=== PATIENT | male | born 1965 | race Caucasian/White ===

== ENCOUNTER 2019-02-16 10:13 | Emergency (ER) | payer OTHER ==
[2019-02-16 10:23] VITALS: BP 150/92; PULSE 69; BMI 27.1
[2019-02-16] MEDS ORDERED: DIPHTH,PERTUSS(ACELL),TET 0.5 ML DISP.SYRIN IM ONE ×2 (11:20→11:26)
--- NOTE | 2019-02-16 11:22 | PDOC ---
History of Present Illness - General Chief Complaint: Laceration Stated Complaint: LIP INJURY Time Seen by Provider: 02/16/19 11:03 History Source: Patient Exam Limitations: Clinical Condition - History of Present Illness Initial Comments: 02/16/19 11:44 Patient with no significant past medical history presented with complaint of laceration to outer and inner aspect of upper lip status post hitting a metal marcus with a metal, and the metal bounced back hitting him in the lip causing laceration. Patient does not recall last tetanus vaccine. Denies headache, dental pain, loose tooth. Denies any other symptoms Timing/Duration: reports: just prior to arrival Past History - Past Medical History Allergies/Adverse Reactions: Allergies Allergy/AdvReac Type Severity Reaction Status Date / Time No Known Allergies Allergy Verified 02/16/19 10:20 Home Medications: Ambulatory Orders Amox-Tr/K Cl [Augmentin - 875Mg Tablet] 1 tab PO BID #14 tablet 02/16/19 Lisinopril [Prinivil] mg PO DAILY 02/16/19 COPD: No HTN: Yes - Surgical History Cholecystectomy: Yes (@ 1997 ?) - Psycho Social/Smoking Cessation Hx Smoking History: Never smoked Review of Systems - Review of Systems Able to Perform ROS?: Yes Is the patient limited Kosovan proficient: No Constitutional: No: Malaise, Weakness HEENTM: Yes: Symptoms Reported, See HPI, Other (lip laceration). No: Eye Pain, Blurred Vision, Tearing, Recent change in vision, Double Vision, Cataracts, Ear Pain, Ocular Prothesis, Ear Discharge, Nose Pain, Nose Congestion, Tinnitus, Nose Bleeding, Hearing Loss, Throat Pain, Throat Swelling, Mouth Pain, Dental Problems, Difficulty Swallowing, Mouth Swelling Respiratory: No: Symptoms reported Cardiac (ROS): No: Symptoms Reported ABD/GI: No: Symptoms Reported, Nausea, Vomiting Musculoskeletal: No: Symptoms Reported Integumentary: Yes: Symptoms Reported, See HPI, Other (lip laceration) Neurological: No: Headache, Unsteady Gait, Dizziness All Other Systems: Reviewed and Negative *Physical Exam - Vital Signs Last Vital Signs Temp Pulse Resp BP Pulse Ox 69 18 150/92 99 02/16/19 10:21 02/16/19 10:21 02/16/19 10:21 02/16/19 10:21 - Physical Exam Comments: 02/16/19 11:54 GENERAL: Well developed, well nourished. Awake and alert. No acute distress. HEENT: 3 cm deep vertical laceration to medial aspect of inner upper lip. Another 1 cm horizontal laceration to the outer aspect of upper lip with no active bleeding. No frenulum or vermilion involvement. Normocephalic, atraumatic. PERRLA, EOMI. No conjunctival pallor. Sclera are non-icteric. Moist mucous membranes. Oropharynx is clear. NECK: Supple. Full ROM. PULMONARY: No evidence of respiratory distress. MUSCULOSKELETAL Normal range of motion at all joints. SKIN: Warm and dry. Normal capillary refill. 3 cm deep vertical laceration to medial aspect of inner upper lip. Another 1 cm horizontal laceration to the outer aspect of upper lip with no active bleeding. No frenulum or vermilion involvement. NEUROLOGICAL: Alert, awake, appropriate. Gait is normal without ataxia. PSYCHIATRIC: Cooperative. Good eye contact. Appropriate mood General Appearance: Yes: Nourished, Appropriately Dressed. No: Apparent Distress Procedures - Laceration/Wound Repair Upper Anterior Lip Wound Length: to 2.5 cm (1cm) Wound Explored: clean, no foreign body present Wound's Depth, Shape: superficial, linear Irrigated w/ Saline: Yes Betadine Prep: Yes Wound Repaired With: Dermabond Sterile Dressing Applied: Yes Splint Applied: No Sling Applied: No Upper Posterior Lip Wound Length: 2.6 to 5.0 cm (3cm) Wound Explored: clean, no foreign body present Wound's Depth, Shape: into muscle, linear, contused tissue Irrigated w/ Saline: Yes Betadine Prep: Yes Anesthesia: 1% Lidocaine Amount of Anesthetic (ccs): 1 Wound Repaired With: Sutures Suture Size/Type: 4:0, nylon Number of Sutures: 3 Layer Closure: No Sterile Dressing Applied: No Splint Applied: No Sling Applied: No Medical Decision Making - Medical Decision Making 02/16/19 11:48 Patient with no significant past medical history presented with complaint of laceration to outer and inner aspect of upper lip status post hitting a metal marcus with a metal, and the metal bounced back hitting him in the lip causing laceration. Patient does not recall last tetanus vaccine. Denies headache, dental pain, loose tooth. Denies any other symptoms Exam significant for 3 cm deep vertical laceration to inner aspect of upper lip. No frenulum involvement. Another 1 cm horizontal laceration to outside aspect of upper lip. No active bleeding. Wound cleaned with Betadine and in the lip laceration closed with 3 interrupted 4-0 nylon sutures. Laceration to outer upper lip closed with Dermabond. Patient tolerated procedure well. Bacitracin applied to laceration to outer upper lip. Tetanus vaccine given. Given the deep nature of inner upper lip laceration, patient be discharged on Augmentin antibiotics for infection prophylaxis. Patient advised to follow-up in 1 week for suture removal. Patient voiced understanding and stable for discharge Discharge - Discharge Information Problems reviewed: Yes Clinical Impression/Diagnosis: Laceration of lip without complication Qualifiers: Encounter type: initial encounter Qualified Code(s): S01.511A - Laceration without foreign body of lip, initial encounter Condition: Stable Disposition: HOME - Admission No - Additional Discharge Information Prescriptions: Amox-Tr/K Cl [Augmentin - 875Mg Tablet] 1 tab PO BID #14 tablet - Follow up/Referral - Patient Discharge Instructions Patient Printed Discharge Instructions: DI for Laceration Repair Additional Instructions: Keep wound clean and dry for the next 24 hours. Apply bacitracin to wound twice a day after removing Steri-Strips. Come back in 1 week for suture removal. Take prescribed antibiotics and finish it. - Post Discharge Activity
[2019-02-16] MEDS ORDERED: ACETAMINOPHEN 325 MG TABLET (FP) ONE (11:24)
[2019-02-16] MEDS ORDERED: IBUPROFEN 600 MG TABLET (FP) PO ONE (11:24)
[2019-02-16] MEDS ORDERED: IBUPROFEN 400 MG TABLET (FP) PO ONE (11:25)
[2019-02-16] MEDS ORDERED: predniSONE 20 MG TABLET (UD) ONE (11:25)
[2019-02-16] MEDS ORDERED: ALBUTEROL SO4 2.5/IPRATROPIUM 0.5 INH SOL 3 ML VIAL.NEB. NEB ONE (11:25)
[2019-02-16] MEDS ORDERED: IBUPROFEN 100 MG/5 ML UNIT DOSE CUPS ONE (11:25)
== END 2019-02-16 11:54 | disposition home or self-care (01) ==
LOC: JERFT 10:13
PROC: 0CQ1XZZ Repair Lower Lip, External Approach (ICD-10-PCS; principal; 2019-02-16)
PROC: 0CQ0XZZ Repair Upper Lip, External Approach (ICD-10-PCS; 2019-02-16)
PROC: 3E0234Z Introduction of Serum, Toxoid and Vaccine into Muscle, Percutaneous Approach (ICD-10-PCS; 2019-02-16)
DX: S01.511A Laceration without foreign body of lip, initial encounter (principal); W20.8XXA Other cause of strike by thrown, projected or falling object, initial encounter; Y93.89 Activity, other specified; Y92.89 Other specified places as the place of occurrence of the external cause
CPT/HCPCS: 90715; 99282-25

== ENCOUNTER 2019-02-23 18:28 | Emergency (ER) | payer OTHER ==
[2019-02-23 18:57] VITALS: BP 134/80; PULSE 65; TEMP 97.8; BMI 27.9
--- NOTE | 2019-02-23 18:57 | PDOC ---
Rapid Medical Evaluation Chief Complaint: Suture/Staple Removal(Here) Time Seen by Provider: 02/23/19 18:54 Medical Evaluation: Allergies Allergy/AdvReac Type Severity Reaction Status Date / Time No Known Allergies Allergy Verified 02/16/19 10:20 02/23/19 18:55 Pt c/o: here for suture removal to upper inner lip Pt on brief exam: healed linear lac to upper inner lip Pt ordered for: none Pt to proceed to the ED Discharge Disposition - Diagnosis Laceration of lip without complication - Referrals - Patient Instructions - Post Discharge Activity
--- NOTE | 2019-02-23 19:15 | PDOC ---
Suture Removal/Wound Check HPI - History of Present Illness Chief Complaint: Suture/Staple Removal(Here) Stated Complaint: SUTURE REMOVAL Time Seen by Provider: 02/23/19 18:54 History Source: Yes: Patient Exam Limitations: Yes: No Limitations Treated at: [facility] ED - Previous ED Treatment Type of procedure performed on last visit: Yes: Laceration Repair Past History - Past Medical History Allergies/Adverse Reactions: Allergies Allergy/AdvReac Type Severity Reaction Status Date / Time No Known Allergies Allergy Verified 02/16/19 10:20 Home Medications: Ambulatory Orders Amox-Tr/K Cl [Augmentin - 875Mg Tablet] 1 tab PO BID #14 tablet 02/16/19 Lisinopril [Prinivil] mg PO DAILY 02/16/19 COPD: No HTN: Yes - Surgical History Cholecystectomy: Yes (@ 1997 ?) - Psycho Social/Smoking Cessation Hx Smoking History: Never smoked Hx Alcohol Use: No Drug/Substance Use Hx: No Suture Removal/Wound Check PE - Physical Exam Laceration/Wound Check Symptoms: reports: None Current Severity Level: None Maximum Severity Level: None Pain Localization: None Pain Radiation: None *Review of Systems - Review of Systems Able to Perform ROS?: Yes Integumentary: No: Symptoms Reported *Physical Exam - Vital Signs Last Vital Signs Temp Pulse Resp BP Pulse Ox 97.8 F 65 66 H 134/80 99 02/23/19 18:54 02/23/19 18:54 02/23/19 18:54 02/23/19 18:54 02/23/19 18:54 - Physical Exam General Appearance: Yes: Nourished, Appropriately Dressed. No: Apparent Distress HEENT: positive: Other (intact sutures to upper inner lip) Medical Decision Making - Medical Decision Making 02/23/19 19:13 CC: here for suture removal to upper inner lip, no complaints Exam: healed lac to upper inner lip Plan: removed 3 sutures without difficulty using 11 blade and hemostat discharge Discharge - Discharge Information Problems reviewed: Yes Clinical Impression/Diagnosis: Laceration of lip without complication Condition: Improved Disposition: HOME - Follow up/Referral Referrals: ABBY SMILEY [Primary Care Provider] - - Patient Discharge Instructions Patient Printed Discharge Instructions: DI for Suture Removal Additional Instructions: do not allow toothbrush to rub on area as this may cause minor bleeding and discomfort. No food restrictions - Post Discharge Activity
== END 2019-02-23 19:20 | disposition home or self-care (01) ==
LOC: JERFT 18:28
DX: Z48.817 Encounter for surgical aftercare following surgery on the skin and subcutaneous tissue (principal); Z48.02 Encounter for removal of sutures
CPT/HCPCS: 99281-25

== ENCOUNTER 2020-05-13 12:07 | Emergency (ER) | payer OTHER | END 2020-05-13 13:11 | disposition home or self-care (01) | LOC: JVIRT 12:07 | DX: Z11.59 Encounter for screening for other viral diseases (principal) | CPT/HCPCS: C9803; G2012-GT; Q3014-GT; U0003 ==

== ENCOUNTER 2020-07-09 10:28 | Emergency (ER) | payer OTHER | END 2020-07-09 13:43 | disposition home or self-care (01) | LOC: JVIRT 10:28 | DX: J02.9 Acute pharyngitis, unspecified (principal); Z11.52 Encounter for screening for COVID-19 | CPT/HCPCS: C9803; G2251-GT; U0003 ==